=== PATIENT | male | born 1935 | race Caucasian/White ===

== ENCOUNTER → 2018-08-03 | Outpatient (CLI) | payer MEDICARE ==
--- NOTE | 2018-08-03 10:35 | PCVCIMAG ---
APPROVED REPORT Study performed: 08/03/2018 09:28:47 EXAM: Comprehensive 2D, Doppler, and color-flow Echocardiogram Patient Location: Echo lab Status: routine BSA: 2.10 HR: 40 bpmBP: 138/82 mmHg Rhythm: Bradycardia Other Information Study Quality: Adequate Indications Bradycardia Dyspnea pre-syncope 2D Dimensions IVSd: 10.06 (7-11mm) LVDd: 54.87 mm PWd: 10.25 (7-11mm)Ascending Ao: 35.80 (22-36mm) LVDs: 33.39 (25-40mm) Left Atrium: 42.39 (27-40mm) Aortic Root: 33.15 mm LV Single Plane 4CH: 61.96 % LV Single Plane 2CH: 55.10 % Biplane EF: 59.4 % Volumes Left Atrial Volume (Systole) Single Plane 4CH: 76.38 mLSingle Plane 2CH: 118.08 mL LA ESV Index: 40.00 mL/m2 Aortic Valve AoV Peak Jack.: 1.48 m/s AO Peak Gr.: 8.75 mmHgLVOT Max P.15 mmHg LVOT Max V: 1.02 m/s Mitral Valve E/A Ratio: 0.5 MV Decel. Time: 325.55 ms MV E Max Jack.: 0.31 m/s MV A Jack.: 0.61 m/s IVRT: 169.55 ms Pulmonary Valve PV Peak Jack.: 1.30 m/sPV Peak Gr.: 6.77 mmHg Pulmonary Vein P Vein S: 0.20 m/sP Vein A: 0.30 m/s P Vein D: 0.31 m/sP Vein A Dur.: 134.9 msec P Vein S/D Ratio: 0.65 Tricuspid Valve TR Peak Jack.: 2.58 m/s TR Peak Gr.: 26.59 mmHg Left Ventricle The left ventricle is normal size. There is normal LV segmental wall motion. There is normal left ventricular wall thickness. Left ventricular systolic function is normal. The left ventricular ejection fraction is within the normal range. LVEF is 55%. Grade I - abnormal relaxation pattern. Right Ventricle The right ventricle is normal size. The right ventricular systolic function is normal. Atria Left atrium is moderately dilated. Right atrium is mildly dilated. Aortic Valve The aortic valve is normal in structure. No aortic regurgitation is present. There is no aortic valvular stenosis. Mitral Valve The mitral valve is normal in structure. Mild mitral regurgitation. No evidence of mitral valve stenosis. Tricuspid Valve The tricuspid valve is normal in structure. Mild tricuspid regurgitation with PAP of 34 mmHg. Pulmonic Valve The pulmonary valve is normal in structure. There is mild pulmonic valvular regurgitation. Great Vessels The aortic root is normal in size. IVC is normal in size and collapses >50% with inspiration. Pericardium There is no pericardial effusion. <Conclusion> The left ventricle is normal size. LVEF is 55%. Grade I - abnormal relaxation pattern. The right ventricle is normal size. Left atrium is moderately dilated. Right atrium is mildly dilated. The aortic valve is normal in structure. Mild mitral regurgitation. Mild tricuspid regurgitation with PAP of 34 mmHg. The aortic root is normal in size. There is no pericardial effusion.
== END | disposition home or self-care (01) ==
LOC: PCVCIMAG 08:56
PROVIDERS: ATTEND Internal Medicine Cardiovascular Disease
DX: I08.8 Other rheumatic multiple valve diseases (principal); E78.00 Pure hypercholesterolemia, unspecified; I71.4 Abdominal aortic aneurysm, without rupture; Z95.828 Presence of other vascular implants and grafts
CPT/HCPCS: 93306

== ENCOUNTER → 2018-08-05 | Outpatient (CLI) | payer MEDICARE ==
[~2018-08-05] MED LIST: REGADENOSON 0.4 MG/5 ML DISP.SYRIN. IV ONE
--- NOTE | 2018-08-05 15:04 | PCVCIMAG ---
APPROVED REPORT Imaging Protocol: Rest Tc-99m/Stress Tc-99m 1 day Study performed: 08/05/2018 08:53:45 Indication: Dyspnea, Lightheaded, Dizziness Patient Location: Out-Patient Stress Nurse: Kajal Centeno RN, Anitra Givens RN [place] Tech:Lisandra RootPOLLY javierMT Ht: 6 ft 3 in Wt: 180 lbs BSA: 2.10 m2 HR: 49 bpm BP: 180/88 mmHg BMI: 22.4 Rhythm: Sinus Bradycardia, RBBB, AF, T abnormalities Medical History Medical History: Hyperlipidemia, PVD Medications: Crestor Allergies: No known drug allergies Cardiac Risk Factors: Age Pretest Chest Pain Characteristics: No chest pain Exercise History: Sedentary Physical Disabilities: Hip and back injury Resting Data Rest SPECT myocardial perfusion imaging was performed in supine position 45 minutes following the intravenous injection of 10.3 mCi of Tc-99m Sestamibi. Time of rest injection: 0845 Date: 08/05/2018 Administration Route: IV Administration Site: Right AC Pharmacologic Stress Pharmacologic stress test was performed by injecting Regadenoson 0.4 mg IV push over 10-15 seconds immediately followed by the intravenous injection of 33.5 mCi of Tc-99m Sestamibi. Time of stress injection: 1000 Date: 08/05/2018 Administration Route: IV Administration Site: Right AC Gated Stress SPECT was performed 45 minutes after stress injection. The images were gated to evaluate regional wall motion and calculate left ventricular ejection fraction. Stress Test Details Stress Test: Pharmacologic stress testing performed using 0.4 mg of regadenoson per 5 mL given IV over 10 seconds. Reason for pharmacologic stress test: near syncope. HRMax Heart Rate (APMHR): 138 bpm Resting HR: 49 bpmTarget HR (85% APMHR): 117 bpm Max HR Achieved: 69 bpm % of APMHR: 50 Recovery HR: 62 bpm BP Resting BP: 180/88 mmHg Max BP: 155/85 mmHg Recovery BP: 129/64 mmHg ECG Resting ECG: Sinus Bradycardia, RBBB, AF, T abnormalities Stress ECG: Sinus Rhythm, RBBB, T abnormalities Recovery ECG: Sinus Rhythm, RBBB, T abnormalities Clinical Reason for Termination: Completed protocol Stress Symptoms: Dyspnea Symptoms resolved with caffeine. Stress ECG Conclusion ECG: Non-ischemic Study Quality Study: Good Study Data Post stress, the left ventricular ejection was 62%.. SSS: 0 SRS: 4 SDS: 0 TID = 0.89. Perfusion No evidence of stress induced ischemia or prior myocardial infarction. Wall Motion Normal left ventricular size and function with no regional wall motion abnormalities. Nuclear Conclusion No evidence of stress induced ischemia or prior myocardial infarction. Normal left ventricular size and function with no regional wall motion abnormalities. Post stress, the left ventricular ejection was 62%. No prior study available for comparison. Interpreted by: Santos Mcdaniel MD Electronically Approved: 08/05/2018 12:43:15 <Conclusion> ECG: Non-ischemic
== END | disposition home or self-care (01) ==
LOC: PCVCIMAG 08:10
PROVIDERS: ATTEND Internal Medicine Cardiovascular Disease
DX: I73.9 Peripheral vascular disease, unspecified (principal); R06.00 Dyspnea, unspecified; R42 Dizziness and giddiness; E78.5 Hyperlipidemia, unspecified
CPT/HCPCS: 78452; 93017; A9500; J2785